=== PATIENT | male | born 1985 | race African-American/Black ===

== ENCOUNTER 2018-07-26 09:35 | Emergency (ER) | payer OTHER ==
[~2018-07-26] VITALS: Ht 188 cm; Wt 83.5 kg
[2018-07-26 09:45] VITALS: BP 125/76; Ht 188 cm; Wt 83.5 kg
== END 2018-07-26 11:11 | disposition home or self-care (01) ==
LOC: ED 09:35
DX: S16.1XXA Strain of muscle, fascia and tendon at neck level, initial encounter (principal); S29.012A Strain of muscle and tendon of back wall of thorax, initial encounter; V49.9XXA Car occupant (driver) (passenger) injured in unspecified traffic accident, initial encounter; Y93.89 Activity, other specified; Y92.410 Unspecified street and highway as the place of occurrence of the external cause; Y99.8 Other external cause status